=== PATIENT | male | born 1945 | race Caucasian/White ===

== ENCOUNTER 2022-09-01 15:06 | Emergency (ER) | payer MEDICARE ==
[~2022-09-01] VITALS: Ht 165.1 cm; Wt 63.5 kg
[2022-09-01] MEDS ORDERED: INSULIN NPH 100 UNITS/ML 10 ML VIAL SUBCUT ONE (15:15)
[2022-09-01 15:16] VITALS: BP_SYST 146
[2022-09-01 17:27] LABS: ANION GAP 9 (5-15); CHLORIDE 99 mmol/L (98-107); CREATININE 1.06 mg/dL (0.55-1.30); GLUCOSE 311 mg/dL (70-99); UREA NITROGEN, BLOOD 13 mg/dL (8-21)
[2022-09-01 17:33] LABS: ALANINE AMINOTRANSFERASE 17 U/L (12-78); ALBUMIN 3.2 g/dL (3.4-4.8); ASPARTATE AMINOTRANSFERASE 15 U/L (10-37); TOTAL BILIRUBIN 0.8 mg/dL (0.0-1.0)
[2022-09-01 20:09] VITALS: BP_SYST 128
== END 2022-09-01 20:09 | disposition home or self-care (01) ==
LOC: SED 15:06
DX: E11.65 Type 2 diabetes mellitus with hyperglycemia (principal); Z79.899 Other long term (current) drug therapy
CPT/HCPCS: 99283; 80053; 82962; 36415; 96372; J1815

== ENCOUNTER 2024-05-04 13:44 | Emergency (ER) | payer MEDICARE ==
[~2024-05-04] VITALS: Ht 165.1 cm; Wt 59.0 kg
[2024-05-04 13:51] VITALS: BP_SYST 146; PULSE 68; RESP 18; TEMP 98.3; O2SAT 98
[2024-05-04 15:07] LABS: BASOPHILS # (AUTO) 0.1 K/uL (0.0-0.2); BASOPHILS % (AUTO) 0.6 % (0.0-2.0); EOSINOPHILS # (AUTO) 0.1 K/uL (0.0-0.4); EOSINOPHILS % (AUTO) 1.2 % (0.0-4.0); HEMATOCRIT 35.5 % (36-54); HEMOGLOBIN 12.2 g/dL (14.0-18.0); LYMPHOCYTES # (AUTO) 1.8 K/uL (1.0-5.5); LYMPHOCYTES % (AUTO) 17.6 % (20.5-51.5); MEAN CORPUSCULAR HEMOGLOBIN 31 pg (27-31); MEAN CORPUSCULAR HGB CONC 34 % (32-36); MEAN CORPUSCULAR VOLUME 90 fL (79.0-98.0); MONOCYTES # (AUTO) 0.9 K/uL (0.0-1.0); MONOCYTES % (AUTO) 8.6 % (1.7-9.3); NEUTROPHILS # (AUTO) 7.4 K/uL (1.8-7.7); PLATELET COUNT (AUTO) 201 K/uL (130-430); RED BLOOD CELL COUNT(AUTO) 3.93 MIL/uL (4.2-6.2); RED CELL DISTRIBUTION WIDTH 12.8 % (9.0-15.0); WHITE BLOOD COUNT (AUTO) 10.3 K/uL (4.8-10.8)
[2024-05-04] MEDS: BACITRACIN 1 GM OINT TP ONE (15:09)
[2024-05-04 15:31] LABS: PROTHROMBIN TIME 10.9 SECS (9.5-12.5)
[2024-05-04 16:08] LABS: ALANINE AMINOTRANSFERASE 14 U/L (12-78); ALBUMIN 3.3 g/dL (3.4-4.8); ANION GAP 8 (5-15); ASPARTATE AMINOTRANSFERASE 16 U/L (10-37); CALCIUM 9.3 mg/dL (8.4-11.0); CARBON DIOXIDE 28 mmol/L (23-29); CHLORIDE 105 mmol/L (98-107); CREATININE 1.25 mg/dL (0.55-1.30); GLUCOSE 214 mg/dL (74-106); SODIUM SERUM 141 mmol/L (136-145); TOTAL BILIRUBIN 0.6 mg/dL (0.0-1.0); TOTAL PROTEIN, SERUM 6.5 g/dL (6.4-8.3); UREA NITROGEN, BLOOD 13 mg/dL (8-21)
[2024-05-04] MEDS ORDERED: NITR0.4T47 SL (17:24)
[2024-05-04] MEDS ORDERED: METH1TAB35 PO (17:24)
[2024-05-04] MEDS ORDERED: MIRT-91 PO (17:24)
[2024-05-04] MEDS ORDERED: MIRA25TA PO (17:24)
[2024-05-04] MEDS ORDERED: GABAPENTIN (17:24)
[2024-05-04] MEDS ORDERED: BUPR-48 PO (17:24)
[2024-05-04] MEDS ORDERED: METF-1069 PO (17:24)
[2024-05-04] MEDS ORDERED: OMEP20CA15 PO (17:24)
[2024-05-04] MEDS ORDERED: GABA300T25 (17:24)
[2024-05-04] MEDS ORDERED: LACT10SO6 (17:24)
[2024-05-04] MEDS ORDERED: LISI10TA29 PO (17:24)
[2024-05-04] MEDS ORDERED: ATOR40TA68 PO (17:24)
[2024-05-04] MEDS ORDERED: NPH,100I SUBCUT (17:24)
[2024-05-04 19:25] LABS: BILIRUBIN,URINE NEGATIVE (NEGATIVE); BLOOD, URINE NEGATIVE (NEGATIVE); CLARITY/URINE CLEAR (CLEAR); COLOR,URINE YELLOW (YELLOW); GLUCOSE,URINE NEGATIVE (NEGATIVE); KETONES,URINE NEGATIVE (NEGATIVE); LEUKOCYTE ESTERASE ,URINE NEGATIVE (NEGATIVE); NITRITE, URINE NEGATIVE (NEGATIVE); PH,URINE 6.5 (5.0-8.0); PROTEIN URINE NEGATIVE (NEGATIVE); UROBILINOGEN,URINE 0.2 (0.2-1.0)
[2024-05-05 05:37] VITALS: BP_SYST 156; PULSE 77; RESP 16; TEMP 98.4; O2SAT 98
== END 2024-05-05 05:37 | disposition short-term general hospital (02) ==
LOC: SED 13:44
DX: S06.5XAA Traumatic subdural hemorrhage with loss of consciousness status unknown, initial encounter (principal); S00.83XA Contusion of other part of head, initial encounter; Z20.822 Contact with and (suspected) exposure to COVID-19; E11.9 Type 2 diabetes mellitus without complications; I10 Essential (primary) hypertension; Z98.890 Other specified postprocedural states; Z95.1 Presence of aortocoronary bypass graft; W01.0XXA Fall on same level from slipping, tripping and stumbling without subsequent striking against object, initial encounter; Y93.89 Activity, other specified; Y92.89 Other specified places as the place of occurrence of the external cause; Y99.8 Other external cause status
CPT/HCPCS: 36415; 70450-TC; 71045; 80053; 81001; 81003; 82948; 83880; 84484; 85025; 85610; 93005; 99285